=== PATIENT | female | born 1965 | race African-American/Black ===

== ENCOUNTER 2016-11-21 18:05 | Emergency (ER) | payer MEDICAID, OTHER ==
[~2016-11-21] VITALS: Ht 162.6 cm; Wt 90.0 kg
[2016-11-21] MEDS ORDERED: LISI2.5T47 PO (18:17)
[2016-11-21] MEDS ORDERED: MORPHINE SULFATE 4 MG/ML CPJ (NOT FOR IM USE) IV ONE (21:15)
[2016-11-21] MEDS ORDERED: ONDANSETRON 4MG ODT PO ONE (21:15)
[2016-11-21 23:21] VITALS: BP 120/70
== END 2016-11-21 23:30 | disposition home or self-care (01) ==
LOC: ER 19:47
DX: S82.832A Other fracture of upper and lower end of left fibula, initial encounter for closed fracture (principal); S82.252A Displaced comminuted fracture of shaft of left tibia, initial encounter for closed fracture; I10 Essential (primary) hypertension; V09.3XXA Pedestrian injured in unspecified traffic accident, initial encounter; W22.8XXA Striking against or struck by other objects, initial encounter; Y93.89 Activity, other specified; Y92.488 Other paved roadways as the place of occurrence of the external cause
CPT/HCPCS: 29505; 73590; 73600; 96374; 99284; J2270; Q0162